=== PATIENT | female | born 1990 | race Caucasian/White ===

== ENCOUNTER 2022-01-30 13:55 | Emergency (ER) | payer BC ==
[2022-01-30] MEDS ORDERED: Sodium Chloride 0.9% 1,000 ML IV ONE (14:38)
[2022-01-30] MEDS ORDERED: Ondansetron 4 MG/2 ML SDV IVPUSH ONE (14:38)
[2022-01-30] MEDS ORDERED: Morphine 2 MG/ML SYRINGE IVPUSH ONE (14:39)
[2022-01-30] MEDS ORDERED: Promethazine 12.5 MG in Sodium Chloride 0.9% 50 ML IV ONE (16:19)
[2022-01-30] MEDS ORDERED: Morphine 4 MG/ML Syringe IVPUSH ONE (16:20)
[2022-01-30] MEDS ORDERED: Dicyclomine 10 MG Cap PO ONE (17:31)
== END 2022-01-30 18:25 | disposition home or self-care (01) ==
LOC: JD.ED 13:55
DX: R10.11 Right upper quadrant pain (principal); Z91.040 Latex allergy status
CPT/HCPCS: 36415; 74176; 76705; 80053; 81003; 81025; 83605; 83690; 85007; 85027; 96365; 96375; 96376; 99284; A9270; J2270; J2405; J2550; J7030